=== PATIENT | male | born 1995 | race Caucasian/White ===

== ENCOUNTER 2018-12-31 20:00 | Emergency (ER) | payer OTHER ==
[~2018-12-31] VITALS: Ht 185.4 cm; Wt 63.0 kg
[2018-12-31] MEDS ORDERED: TETANUS,DIPTH,PERTUSS P/F (BOOSTRIX) 0.5 ML VIAL IM ONE ×2 (20:15→22:19)
--- NOTE | 2018-12-31 20:15 | ED Fall/Injury ---
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, AND FELL OFF LADDER, APPROXIMATELY 7 FEET CUT LEFT LOWER LEG ON A PIECE OF METAL THAT WAS STICKING OUT PT DENIES HITTING HEAD OR HAVING LOSS OF CONSCIOUSNESS DENIES NECK OR BACK PAIN NO PARESTHESIAS OR MOTOR DEFICITS NO CHEST OR ABDOMINAL PAIN LAST TETANUS UNKNOWN PCP: NONE PT IS FROM [place], TRAVELS WITH THE [facility] Allergies and Home Medications Allergies Coded Allergies: No Known Drug Allergies (Unverified , 12/31/18) Home Medications Sulfamethoxazole/Trimethoprim 1 Each Tablet, 1 EACH PO BID Prescribed by: SYLWIA LIMA on 12/31/182125 Patient Home Medication List Home Medication List Reviewed: Yes Review of Systems Review of Systems Constitutional: no symptoms reported Eyes: No Symptoms Reported Ears, Nose, Mouth, Throat: no symptoms reported Respiratory: no symptoms reported Cardiovascular: no symptoms reported Gastrointestinal: no symptoms reported Genitourinary: no symptoms reported Musculoskeletal: see HPI Skin: see HPI Psychiatric/Neurological: No Symptoms Reported Past Ladwohr-Lzrqsm-Afbcen Hx Patient Social History Alcohol Use: Occasionally Uses Recreational Drug Use: Yes (THC) Drug of Choice: THC Smoking Status: Current Everyday Smoker (1 1/2 PPD) Type Used: Cigarettes Immunizations Up To Date Tetanus Booster (TDap): Unknown Seasonal Allergies Seasonal Allergies: Yes Past Medical History Surgeries: No Respiratory: No Cardiac: No Neurological: No Genitourinary: No Gastrointestinal: No Musculoskeletal: No HEENT: No Cancer: No Psychosocial: No Integumentary: No Blood Disorders: No Physical Exam Vital Signs Vital Signs - First Documented Capillary Refill : Height, Weight, BMI Height: '" Weight: lbs. oz. kg; BMI Method: General Appearance: no apparent distress, thin, other (EXREMELY MALODOROUS, FILTHY, TALKS NON-STOP) HEENT: PERRL/EOMI, other (EXTENSIVE DENTAL DECAY--NICOLETTE AT GUM LINE) Neck: other (IN CERVICAL COLLAR) Cardiovascular: regular rate, rhythm, no edema, no murmur Respiratory: chest non-tender, normal breath sounds, no respiratory distress, no accessory muscle use Peripheral Pulses: 2+ Dorsalis Pedis (R), 2+ Left Dors-Pedis (L), 2+ Radial Pulses (R), 2+ Radial Pulses (L) Gastrointestinal: non tender, soft Back: normal inspection, no CVA tenderness, no vertebral tenderness Extremities: no pedal edema, no calf tenderness, normal capillary refill, other (FUL THICKNESS LACERATION TO LEFT LOWER LEG, ANTERIOR ASPECT=--APPROXIMATELY 8 CM, WITH ADJACENT ABRASION LATERALLY. 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, no motor/sensory deficits, alert, normal mood/affect, oriented x 3 Skin: normal color, warm/dry, other (LACERATION NOTED ABOVE) Procedures/Interventions Other Wound Location LEFT LOWER LEG Wound Length (cm): 8 Wound's Depth, Shape: linear, sub Q Wound Explored: clean Irrigated w/ Saline (ccs): 1000 Betadine Prep?: No (BETASEPT) Anesthesia: Lidocaine w/ Epi (2%) Staple Repair: Stapler 35W Suture: Ethlion Suture Size: 3-0 Layer Closure?: 2 Sterile Dressing Applied?: Yes Progress INJECTED WITH 2% LIDOCAINE + EPI PROFUSELY IRRIGATED WITH STERILE SALINE + BETASEPT WOUND EXTENDS TO FASCIA COVERING BONE--DEEP LAYERS CLOSED WITH 3-0 VICRYL RUNNING/INTERLOCKED SUTURE SKIN CLOSED WITH #15 MARY WOUND CLEANSED AND DRESSED WITH TRIPLE ANTIBIOTIC AND GAUZE Progress/Results/Core Measures Results/Orders My Orders Orders - SYLWIA LIMA DO Ct Head/Cervical Spine Wo (12/31/18 20:02) Tibia/Fibula, Left, 2 Views (12/31/18 20:02) Pelvis (12/31/18 20:02) Dipht,Pertuss(Acell),Tet Adult (Boostrix (12/31/18 20:15) Ct Thoracic/Lumbar Spine Wo (12/31/18 20:02) Chest 1 View, Ap/Pa Only (12/31/18 20:02) Lidocaine/Epi 2% 1:100,000 (Xylocaine/Ep (12/31/18 20:45) Wound Dressing-Ed (12/31/18 20:41) Rx-Trimeth/Sulfameth Ds Tab (Rx-Bactrim/ (12/31/18 21:21) Dipht,Pertuss(Acell),Tet Adult (Boostrix (12/31/18 22:19) Medications Given in ED Current Medications Medications Dose Ordered Sig/Allen Route Start Time Stop Time Status Last Admin Dose Admin Diphtheria/ Tetanus/Acell Pertussis 0.5 ml ONCE ONCE IM 12/31/18 20:15 12/31/18 20:16 DC 12/31/18 22:28 0.5 ML Lidocaine/ Epinephrine 20 ml ONCE ONCE INJ 12/31/18 20:45 12/31/18 20:46 DC 12/31/18 20:44 20 ML Vital Signs/I&O 12/31/18 12/31/18 12/31/18 20:10 20:10 22:30 Temp 98.2 98.2 98.6 Pulse 138 138 86 Resp 18 18 14 B/P (MAP) 122/68 (86) 122/68 (86) 120/73 (89) Pulse Ox 100 100 98 O2 Delivery Room Air Room Air Room Air Diagnostic Imaging Comments RADIOLOGIST REPORTS RECEIVED AT 2119: CT HEAD/CERVICAL SPINE--SINUS DISEASE, OTHERWISE NO ACUTE PROCESS CT THORACIC /LUMBAR SPINE--NO ACUTE PROCESS CXR--NO ACUTE PROCESS PELVIS--NO ACUTE PROCESS LEFT TIB-FIB--NO ACUTE PROCESS Reviewed: Reviewed by Me Departure Impression Primary Impression: S/P FALL FROM LADDER Additional Impressions: Laceration of left lower leg NECK AND BACK STRAIN Mawepnjliq-nqmeuqocm-qlnyphb (DPT) vaccination administered at current visit Disposition: 01 HOME, SELF-CARE Condition: Stable Departure-Patient Inst. Referrals: UNKNOWN (PCP) Primary Care Physician Patient Instructions: Cervical Muscle Strain (DC), Diphtheria and Tetanus Toxoids, and Acellular Pertussis Vaccine, Laceration Repair With [place]o (DC), Lumbar Muscle Strain (DC), Preventing Falls Add. Discharge Instructions: CLEAN WOUND TWICE A DAY WITH ANTIBACTERIAL SOAP AND WATER KEEP WOUND CLEAN, DRY AND COVERED TYLENOL AND MOTRIN NEEDED FOR PAIN MARY OUT IN 12-14 DAYS--RETURN TO ER FOR REMOVAL All discharge instructions reviewed with patient and/or family. Voiced understanding. Scripts Sulfamethoxazole/Trimethoprim (Bactrim Ds Tablet) 1 Each Tablet 1 EACH PO BID, #20 TAB Prov: SYLWIA LIMA DO 12/31/18 SYLWIA LIMA DO Dec 31, 2018 20:15
[2018-12-31] MEDS ORDERED: LIDOCAINE/EPI 2% 1:100,00 (XYLOCAINE) 20 ML VIAL INJ ONE (20:45)
--- NOTE | 2018-12-31 20:47 | Diagnostic Imaging Report ---
INDICATION: Approximately 7-9 foot fall from [employer] equipment. Pain in right thigh. Laceration of the leg. TECHNIQUE: AP pelvis 8:36 PM CORRELATION STUDY: None FINDINGS: The pelvis demonstrates no evidence for acute fracture. The pectineal lines and obturator rings are maintained. Pubic symphysis and SI joints are unremarkable. Hips unremarkable. IMPRESSION: Negative examination of the pelvis. Dictated by: Dictated on workstation # [id number]
--- NOTE | 2018-12-31 20:50 | Diagnostic Imaging Report ---
INDICATION: 7-9 foot fall from [employer] equipment. Pain, laceration. TECHNIQUE: AP and lateral views of the left tibia and fibula CORRELATION STUDY: None FINDINGS: The tibia and fibula are intact. There is no evidence for acute fracture. Limited visualized portions of the knee and ankle are unremarkable. Soft tissues are unremarkable. IMPRESSION: 1.Negative for acute bony abnormality of the leg. Dictated by: Dictated on workstation # [id number]
--- NOTE | 2018-12-31 20:51 | Diagnostic Imaging Report ---
PROCEDURE: CT head and CT cervical spine without contrast. TECHNIQUE: Multiple contiguous axial images were obtained through the brain and cervical spine without the use of intravenous contrast. Sagittal and coronal reformations through the cervical spine were then performed. Auto Exposure Controls were utilized during the CT exam to meet ALARA standards for radiation dose reduction. INDICATION: Status post approximately 7-9 foot fall from [employer] equipment. Patient reportedly denies any head and/or neck pain. COMPARISON: None CT HEAD FINDINGS: The ventricles and sulci are within normal limits. There is no midline shift or mass effect. No evidence for acute intracranial hemorrhage or extra-axial fluid collections. The bony calvarium is intact. There is rather significant mucosal thickening of the bilateral maxillary sinuses. Trace mucosal thickening to the ethmoid air cells and sphenoid sinus. CT CERVICAL SPINE FINDINGS: There is normal alignment and curvature of the cervical spine. There is no evidence for acute bony abnormality. The odontoid is intact. The prevertebral soft tissues are normal. There is noted multiple eroded teeth of the bilateral maxilla and mandibular teeth compatible with rather extensive dental caries and periapical lucencies. IMPRESSION: 1. No acute traumatic intracranial abnormality. 2. Sinusitis. 3. No evidence for acute cervical spine fracture or subluxation. 4. Extensive periodontal disease and dental caries. Dictated by: Dictated on workstation # [id number]
--- NOTE | 2018-12-31 20:56 | Diagnostic Imaging Report ---
INDICATION: Approximately 7-9 foot fall from [employer] equipment. Trauma.. TECHNIQUE: Single view chest 8:35 PM. CORRELATION STUDY: None FINDINGS: The heart size, mediastinal configuration and pulmonary vascularity are within normal limits. The lungs are clear with no consolidating infiltrate. There is no significant effusion or pneumothorax. IMPRESSION: 1. No radiographic findings to suggest acute traumatic abnormality of the chest. Dictated by: Dictated on workstation # [id number]
--- NOTE | 2018-12-31 21:05 | Diagnostic Imaging Report ---
PROCEDURE: CT thoracic and lumbar spine without contrast. TECHNIQUE: Multiple contiguous axial images were obtained through the thoracic and lumbar spine without the use of intravenous contrast. Sagittal and coronal reformations were then performed. INDICATION: Approximately 7-9 foot fall from [employer] equipment. Patient denies pain in the back. CORRELATION STUDY: None. FINDINGS: There is rightward curvature of the lower thoracic spine. Normal kyphosis. The thoracic vertebral body heights are maintained without evidence for acute appearing compression deformity. Posterior elements intact and in normal alignment. No osseous encroachment or narrowing of the spinal canal. Paraspinal soft tissues appear unremarkable. No significant areas of pulmonary contusion or pneumothorax in the visualized lung spring. Rightward curvature of the superior lumbar spine. The lumbar lordosis otherwise is fairly well maintained. Lumbar vertebral body heights are maintained. The interdisc spaces are preserved. Posterior elements intact and in normal alignment. Paraspinal soft tissues appear unremarkable. IMPRESSION: 1. Negative for acute fracture of the thoracic spine. 2. Negative for acute fracture of the lumbar spine. 3. Rightward curvature of the thoracolumbar spine. This may be owing to positioning versus scoliosis. Dictated by: Dictated on workstation # [id number]
[2018-12-31] MEDS ORDERED: RX-TRIMETH/SULFA. 160-800 MG (BACTRIM DS) TAB PPK#2 PO STA (21:21)
[2018-12-31] MEDS ORDERED: SULF1TAB35 PO (21:26)
[2018-12-31 22:30] VITALS: BP 120/73
== END 2018-12-31 22:30 | disposition home or self-care (01) ==
LOC: ER 20:03
DX: S81.812A Laceration without foreign body, left lower leg, initial encounter (principal); S16.1XXA Strain of muscle, fascia and tendon at neck level, initial encounter; S39.012A Strain of muscle, fascia and tendon of lower back, initial encounter; F12.10 Cannabis abuse, uncomplicated; F17.210 Nicotine dependence, cigarettes, uncomplicated; Z23 Encounter for immunization; W11.XXXA Fall on and from ladder, initial encounter; W26.8XXA Contact with other sharp object(s), not elsewhere classified, initial encounter; Y92.59 Other trade areas as the place of occurrence of the external cause; Y99.0 Civilian activity done for income or pay
CPT/HCPCS: 70450; 71045; 72125; 72128; 72131; 72170; 73590; 90715